=== PATIENT | male | born 1970 | race Caucasian/White ===

== ENCOUNTER → 2020-04-11 | Outpatient (CLI) | payer BC ==
[~2020-04-11] VITALS: Ht 177.8 cm; Wt 122.6 kg
[~2020-04-11] MED LIST: EFFEXOR XR75 MG/CAP PO; GLUCOPHAGE XR500 M1 PO; HCTZ 25MG TAB25 MG PO; LOFIBRA54 MG PO; MASON NATURAL1200 MG PO; MIRAPEX0.5 MG PO; MULTIPLE VITAMI1 CAP PO; PRILOSEC 20MG20 MG PO; ZOCOR 40MG40 MG PO
[2020-04-11 13:10] VITALS: BP 141/85; PULSE 66
[2020-04-11 13:54] VITALS: BP 160/85; PULSE 71
--- NOTE | 2020-04-11 14:10 | NUR ---
Pt out to car per ambulation. Denies pain at this time. Bandaid to site clean dry and intact.
== END ==
LOC: COL.RAD 12:45
DX: E04.1 Nontoxic single thyroid nodule (principal)

== ENCOUNTER 2021-02-15 06:54 | Day surgery (SDC) | payer BC ==
[~2021-02-15] VITALS: Ht 177.8 cm; Wt 120.7 kg
[2021-02-15 07:36] VITALS: BP 133/82; PULSE 72; TEMP 98.2
[2021-02-15 08:30] VITALS: BP 124/82; PULSE 67; TEMP 98.3
--- NOTE | 2021-02-15 08:30 | NUR ---
PATIENT TO RECOVERY BAY TO POST PROCEDURE VIA CART ACCOMPANIED BY RN SAPPHIRE. UP TO CHAIR AMBULATORY WITH 1 PERSON ASSIST. MADE COMFORTABLE IN CHAIR. VITAL SIGNS DONE. DENIES DIZZINESS OR NAUSEA. REPORT FROM PDAVIS RN. GIVEN JUICE AND MUFFIN. NO COMPLAINTS OF PAIN.
[2021-02-15 08:45] VITALS: BP 128/92; PULSE 69
--- NOTE | 2021-02-15 08:51 | NUR ---
IV SITE TO RIGHT HAND DISCONTINUED. SECURED WITH COTTON AND COBAN.
--- NOTE | 2021-02-15 08:57 | NUR ---
IN TO TALK WITH PATIENT
--- NOTE | 2021-02-15 09:00 | NUR ---
DISMISSAL INSTRUCTIONS GIVEN TO PATIENT, HARDCOPIES AND VERBAL EXPLANATION. PATIENT VERBALIZES UNDERSTANDING AND DENIES QUESTIONS. PATIENT SIGNS IN UNDERSTANDING.
--- NOTE | 2021-02-15 09:15 | NUR ---
PATIENT DISMISSED TO HOME. 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
== END 2021-02-15 09:15 | disposition home or self-care (01) ==
LOC: SDCO 06:54
DX: Z12.11 Encounter for screening for malignant neoplasm of colon (principal); K62.1 Rectal polyp; K64.1 Second degree hemorrhoids; K64.4 Residual hemorrhoidal skin tags; F32.9 Major depressive disorder, single episode, unspecified; K21.9 Gastro-esophageal reflux disease without esophagitis; E78.5 Hyperlipidemia, unspecified; I10 Essential (primary) hypertension; G25.81 Restless legs syndrome; E78.1 Pure hyperglyceridemia; J30.9 Allergic rhinitis, unspecified; G47.33 Obstructive sleep apnea (adult) (pediatric); Z20.822 Contact with and (suspected) exposure to COVID-19; E11.9 Type 2 diabetes mellitus without complications; Z79.84 Long term (current) use of oral hypoglycemic drugs
CPT/HCPCS: J2704; J7030